=== PATIENT | male | born 1970 | race Caucasian/White ===

== ENCOUNTER 2024-11-06 11:38 | Emergency (ER) | payer OTHER, SELFPAY ==
[2024-11-06 11:41] VITALS: BP 139/71
--- NOTE | 2024-11-06 12:02 | ED.GENMED ---
History of Present Illness
<LENNY Mondragon - Last Filed: 11/06/24 16:09>
General
Chief Complaint: DVT/Possible Blood Clot
Source: patient
Exam Limitations: none
Time Seen by Provider: 11/06/24 11:52
Nursing documentation reviewed up to this point in time: agreed with
History of Present Illness
History of Present Illness:
Patient is a 54-year-old male brought from detention for evaluation. Patient complains of pain to right lower leg for the past week. He was sent for evaluation of redness and swelling to the leg. He has no prior history of blood clot but does report
he does not take his medicines when given to him. He supposed to be on Lasix and does not take this. He reports he has chronic swelling his lower extremities. He reports when he is not in detention he does not typically go to the doctor and does not
take any medicine.
He denies any fever chills. He does complain of pain to right lower leg and redness.
Review of Systems
<LENNY Mondragon - Last Filed: 11/06/24 16:09>
Review of Systems
Allergies reviewed?: Yes
All Other Systems: ROS reviewed and negative except as documented in HPI and ROS
Constitutional: Reports no symptoms; Denies fever
Respiratory: Reports no symptoms; Denies trouble breathing
Cardiac: Reports no symptoms
ABD/GI: Reports no symptoms
Musculoskeletal: Reports other (right lower leg pain /swelling/redness )
Skin: Reports no symptoms
Neurological: Reports no symptoms
Psychiatric: Reports no symptoms
Phy Exam
<LENNY Mondragon - Last Filed: 11/06/24 16:09>
General Physical Exam
General Presentation: no apparent distress
General age: appears stated age
General Skin: warm and dry
General Habitus: normal
General Mental: alert
General Hydration: appears well hydrated
Cardiovascular Exam
Cardiovascular Exam: regular rate/rhythm
Pulmonary Exam
Pulmonary Exam: lungs clear and no respiratory distress
Neurological Exam
Neurological Exam: alert and oriented x3
Musculoskeletal Exam
Musculoskeletal Exam: other (Patient with bilateral lower extremity swelling however right lower leg with increased swelling and erythema, erythema is increased at right lateral aspect; non tender )
Skin Exam
Skin Exam: normal color and warm/dry
Psychiatric Exam
Psychiatric Exam: normal mood/affect
Course
<LENNY Mondragon - Last Filed: 11/06/24 16:09>
Orders/Labs/Results
Orders:
Orders
11/06/24 12:12
IV Insert/Care/Rem.- Treatment PRN
Venous Doppler Lwr Ext Rt [US Periph Venous LOWER Ext RT] Urgent
Comment:
Reason For Exam: swelling/redness
11/06/24 12:36
Complete Blood Count/With Diff Urgent
Comprehensive Metabolic Panel Urgent
11/06/24 15:57
Cephalexin Monohydrate [Keflex] 500 mg PO NOW STA
Abnormal Lab Results
11/06/24
12:36
RBC 4.40 L 10^6/uL
(4.70-6.10)
Hgb 12.3 L g/dL
(13.0-18.0)
Hct 37.4 L %
(39.0-52.0)
MCHC 32.9 L g/dL
(33.0-37.0)
Absolute Monos (auto) 0.8 H 10^3/uL
(0.1-0.6)
Lymphocytes % 16.8 L %
(20.5-51.1)
Carbon Dioxide 31 H mmol/L
(22-30)
Glucose 119 H mg/dl
(70-99)
Albumin 3.2 L g/dl
(3.5-5.0)
11/06/24 12:36
11/06/24 12:36
Vital Signs
Initial and Last Documented VS:
Initial Vital Signs
Temp Pulse Resp BP Pulse Ox
98.8 F 86 19 139/71 97
11/06/24 11:41 11/06/24 11:41 11/06/24 11:41 11/06/24 11:41 11/06/24 11:41
Last Documented Vital Signs
Temp Pulse Resp BP Pulse Ox
98.8 F 86 19 139/71 97
11/06/24 11:41 11/06/24 11:41 11/06/24 12:00 11/06/24 11:41 11/06/24 11:51
Pens And Pencils Repairer consulted with Physician
Pens And Pencils Repairer consulted with physician?: Yes
Name of Physician Consulted: Mahin
<Airam Stockton MD - Last Filed: 11/06/24 16:29>
Orders/Labs/Results
Orders:
Orders
11/06/24 12:12
IV Insert/Care/Rem.- Treatment PRN
Venous Doppler Lwr Ext Rt [US Periph Venous LOWER Ext RT] Urgent
Comment:
Reason For Exam: swelling/redness
11/06/24 12:36
Complete Blood Count/With Diff Urgent
Comprehensive Metabolic Panel Urgent
11/06/24 15:57
Cephalexin Monohydrate [Keflex] 500 mg PO NOW STA
Abnormal Lab Results
11/06/24
12:36
RBC 4.40 L 10^6/uL
(4.70-6.10)
Hgb 12.3 L g/dL
(13.0-18.0)
Hct 37.4 L %
(39.0-52.0)
MCHC 32.9 L g/dL
(33.0-37.0)
Absolute Monos (auto) 0.8 H 10^3/uL
(0.1-0.6)
Lymphocytes % 16.8 L %
(20.5-51.1)
Carbon Dioxide 31 H mmol/L
(22-30)
Glucose 119 H mg/dl
(70-99)
Albumin 3.2 L g/dl
(3.5-5.0)
11/06/24 12:36
11/06/24 12:36
Vital Signs
Initial and Last Documented VS:
Initial Vital Signs
Temp Pulse Resp BP Pulse Ox
98.8 F 86 19 139/71 97
11/06/24 11:41 11/06/24 11:41 11/06/24 11:41 11/06/24 11:41 11/06/24 11:41
Last Documented Vital Signs
Temp Pulse Resp BP Pulse Ox
98.8 F 86 19 139/71 97
11/06/24 11:41 11/06/24 11:41 11/06/24 12:00 11/06/24 11:41 11/06/24 11:51
<LENNY Mondragon - Last Filed: 11/06/24 16:09>
MDM/Problems Addressed
MDM/Problems Addressed:
Patient is a 54-year-old obese male with chronic lower extremity swelling likely from venous insufficiency. He reports he is noncompliant with his meds and normally does not take meds at home and since he has been incarcerated has been refusing
meds which include Lasix. He was sent for experiencing lower extremity swelling to the right lower leg with redness. On exam there is obvious swelling and redness most of the lateral aspect of the right lateral lower leg however there is no DVT on
ultrasound and he is nontender. His white count is normal he denies any fevers he is nontoxic. No complaints of shortness of breath. Case reviewed ED physician who evaluated patient will DC with Keflex with close outpatient follow-up.
<Chanel L. Reichner, PUBLIC ADDRESS SYSTEM INSTALLER - Last Filed: 11/06/24 16:09>
*Radiology
Radiology exam reviewed: radiology read reviewed
*Pulse Oximetry
Patient hypoxic: no
*Critical Care Note
Total Time (30-74mins, 75-104mins- exclusive of procedures): Not Applicable
ED Attending Note
<LENNY Mondragon - Last Filed: 11/06/24 16:09>
-
Portions of this chart may have been created with voice recognition software.� Occasional wrong word or��sound alike� substitutions may have occurred due to the inherent limitations of voice recognition software.
<Airam Stockton MD - Last Filed: 11/06/24 16:29>
ED Attending Note
Patient seen and examined by attending physician: Yes
I performed the substantive portion of visit, reviewed & personally made and approve the management plan that is documented in note by myself or ELEUTERIO.: Yes
ED Attending Note:
I have seen and evaluated the patient with a [id number] encounter. I have spoken to the [COMMUTATOR UNDERCUTTER] and involved in the medical history, the physical exam, medical decision making.
Evaluation and management service: agree unless noted differently below.
Results interpretation: agree unless noted differently below.
54-year-old male presenting to the emergency department right leg swelling. Patient states that he is legs have been swollen bilaterally for quite some time. He does have some skin changes at the bottom of both his legs. Today he noticed some
redness to the right leg so he came in for further evaluation. On exam patient is resting comfortably. He does have bilateral lower extremity edema with venous stasis changes. However he does have an area of redness and warmth that is different
to the right lower lateral aspect of the leg. It is not circumferential. It does appear cellulitic with no obvious fluctuance or abscess or drainage. Ultrasounds obtained which was negative for DVT. He is afebrile with a normal white count.
Will discharge with Keflex. Strict return precautions given.
Discharge Plan
Departure
Patient Disposition: Home (Routine Discharge)
Date of Disposition: 11/06/24
Time of Disposition: 16:05
Patient with high blood pressure during this ER visit?: No
Condition: Fair
Covid-19: Not Applicable
Discharge Problem:
cellulitis of right lower leg
Instructions: Cellulitis (Skin Infection), Adult (DC), BLOOD PRESSURE
Prescriptions:
New
cephalexin 500 mg capsule
500 mg PO Q6H Qty: 28 0RF
Referrals:
UNKNOWN - PT NOT,INTERVIEWE [Family Provider] -
Activity Restrictions/Additional Instructions:
Patient's blood work was normal including normal white count; he did not have a fever; his ultrasound was negative for a DVT. He was given 1 dose of Keflex here in the ER and a prescription was given and printed out for Keflex for the next week.
He must however be seen by physician in the next several days to ensure improvement. He is to return if any worsening of symptoms
Interventions
Interventions:
*Risk Screen - Suicide Last Done: 11/06/24 11:41
*General Assessment Last Done: 11/06/24 11:41
*Neglect/Abuse Screening Last Done: 11/06/24 11:41
*ED COVID-19 Vaccine History Last Done: 11/06/24 12:02
ED- Cardiac Assessment Last Done: 11/06/24 11:51
ED- Pulmonary Assessment Last Done: 11/06/24 11:51
ED-Peripheral Vascular Assessment Last Done: 11/06/24 11:51
ED-Skin Assessment Last Done: 11/06/24 11:51
Discharge Date and Time
Print Language: SAO TOMEAN
--- NOTE | 2024-11-06 12:04 | EDRN ---
When interviewing during triage, pt states 'I don't have any medical conditions, they maybe told me I had a heart attack, I don't take any medications'. On pts paperwork from corrections, notes are made on pts medical conditions that pt was educated
on medication compliance and pt continues to refuse medications and doctor appointments.
[2024-11-06 12:39] VITALS: BMI 53.3
[2024-11-06 12:44] LABS: % Basophils 0.5 % (0-2); % Eosinophils 1.5 % (0-6); % Immature Granulocytes 0.5 % (0-0.5); % Lymphocytes 16.8 % (20.5-51.1); % Monocytes 9.3 % (1.7-9.3); % Neutrophils 71.4 % (42.2-75.2); Absolute Eosinophils 0.1 10^3/uL (0-0.7); Absolute Lymphocytes 1.4 10^3/uL (1.2-3.4); Absolute Monocytes 0.8 10^3/uL (0.1-0.6); Absolute Neutrophils 6.1 10^3/uL (1.4-6.5); Hematocrit 37.4 % (39.0-52.0); Hemoglobin 12.3 g/dL (13.0-18.0); Mean Corp Hgb Conc. 32.9 g/dL (33.0-37.0); Mean Platelet Volume 9.3 fL (7.4-10.4); Nucleated Red Blood Cells % 0 % (-); Platelet Count 286 10^3/uL (130-400); Red Cell Dist. Width 14.3 % (11.5-14.5); White Blood Cell Count 8.6 10^3/uL (4.8-10.8)
[2024-11-06 13:01] LABS: ALT (SGPT) 22 U/L (0-50); AST (SGOT) 17 U/L (17-59); Albumin 3.2 g/dl (3.5-5.0); Alkaline Phosphatase 97 U/L (38-126); Blood Urea Nitrogen 12 mg/dl (9-20); Calcium 8.8 mg/dl (8.4-10.2); Carbon Dioxide 31 mmol/L (22-30); Chloride 101 mmol/L (98-107); Estimated Creatinine Clearance > 125 ml/min; Glucose 119 mg/dl (70-99); Potassium 4.8 mmol/L (3.5-5.1); Sodium 136 mmol/L (135-145); Total Bilirubin 0.9 mg/dl (0.2-1.3); Total Protein 7.4 g/dl (6.3-8.2); eGFR > 60.00
[2024-11-06] MEDS: KEFLEX 500 MG PO (16:30)
[2024-11-06 16:39] VITALS: BP 124/78
== END 2024-11-06 16:41 | disposition home or self-care (01) ==
LOC: EMR 11:38
PROVIDERS: Nurse Practitioner; EMERGENCY PHYSICIAN Student in an Organized Health Care Education/Training Program
DX: L03.115 Cellulitis of right lower limb (principal); R22.41 Localized swelling, mass and lump, right lower limb; E66.9 Obesity, unspecified; Z91.148 Patient's other noncompliance with medication regimen for other reason
CPT/HCPCS: 99284; 80053; 85025; 93971